=== PATIENT | female | born 2000 | race Caucasian/White ===

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

== ENCOUNTER → 2021-02-08 10:43 | Outpatient (CLI) | payer BC, SELFPAY ==
--- NOTE | 2021-02-08 10:55 | US_ITS ---
STUDY: ULTRASOUND BREAST - RIGHT REASON FOR EXAM: Female, 20 years old. Two-week history of a palpable right breast lump. TECHNIQUE: Axial and longitudinal images of the RIGHT breast were performed with a high resolution ultrasound transducer. # OF IMAGES: 45 COMPARISON: None. FINDINGS: RIGHT Breast: The palpable abnormality corresponds to a 1.1 cm x 1.4 cm x 0.8 cm hypoechoic nodular density with the mildly undulating borders. This is superficial. This is at the 4 o''clock position in the breast at 2 cm from the nipple. This most likely represents a fibroadenoma. Tissue diagnosis is recommended. US/Breast Limited Unilateral IMPRESSION: The palpable abnormality corresponds to a 1.1 cm x 1.4 cm x 0.7 hypoechoic nodular density with slightly undulating borders. This most likely represents a fibroadenoma although a tissue diagnosis recommended. ASSESSMENT CATEGORY: BIRADS Category 4: Suspicious - Biopsy Should Be Considered. A letter regarding these results will be sent to the patient by the facility within 30 days. Electronically Signed: Sudhir Rivas MD at 13:04 EDT , Service support ,
== END ==
PROVIDERS: Referring Provider Physician Assistant; Visit Provider Physician Assistant
DX: N63.10 Unspecified lump in the right breast, unspecified quadrant (principal)
CPT/HCPCS: 76642

== ENCOUNTER → 2021-03-21 | Outpatient (CLI) | payer BC, SELFPAY ==
--- NOTE | 2021-03-21 13:10 | BRBX_PTH ---
PATIENT: JESSICA ARANA LOC: [facility] U#:[id number] AGE/SX: 20/F ROOM: RE03/21/[address]: Dr. Hermelinda Sebastian MD : 2000 BED: DIS: 03/21/2021 SPEC #: [id number] RECD: 03/21/21 15:03 STATUS: ABDULLAHI REDarshan #: [id number] MALINA: 03/21/21 13:[address]: Hermelinda Sebastian DEPT: SURGICAL PATHOLOGY RECD BY: Temitope Schmidt ENTERED: 03/22/21 08:30 SP TYPE: BREAST BX OTHR DR: No Primary Care Phys Tissues: Right breast, NOS Procedures: Surgery Specimen Level IV HEADER OPERATION: Right breast biopsy PRE-OP DIAGNOSIS: Right breast mass TISSUE SUBMITTED: Right breast tissue 5 o?clock, 2 cm from nipple MICROSCOPIC DIAGNOSIS Right breast, 5 o?clock, 2 cm from nipple, core biopsy: Fibroadenoma. Negative for atypia or malignancy. See comment. YUAN:alexandria 03/25/2021 COMMENT Correlation with clinical findings and appropriate follow up are necessary. MICROSCOPIC DESCRIPTION Slides are reviewed. GROSS DESCRIPTION Received in fixative is one container labeled with the patient's name and designated right breast. The specimen consists of multiple elongated fragments of gomes-yellow fibroadipose tissue that in aggregate measure 1 x 0.5 x 0.1 cm. The entire specimen is submitted in one cassette. / YUAN:alexandria 03/22/21 TC:1 CPT: 73126
== END | disposition home or self-care (01) ==
LOC: LABSPEC 16:40
PROVIDERS: Visit Provider Surgery
DX: D24.1 Benign neoplasm of right breast (principal)
CPT/HCPCS: 88305

== ENCOUNTER → 2021-06-06 10:26 | Outpatient (CLI) | payer BC, SELFPAY ==
--- NOTE | 2021-06-06 10:28 | US_ITS ---
STUDY: ULTRASOUND OF THE FEMALE PELVIS - COMPLETE REASON FOR EXAM: Female, 21 years old. AUB LMP: 06/01/2021. TECHNIQUE: Transabdominal and Transvaginal TECHNICAL QUALITY: Adequate. COMPARISON: None. FINDINGS: The uterus is anteverted and is in a midline position. The uterus measures 6.7 cm x 4.5 cm x 2.9 cm. Normal uterine cervix. The endometrium measures 3.4 mm in thickness, and is hyperechoic. There is no demonstrated endometrial mass. There is no demonstrated myometrial mass. I.U.D. - The patient does not have an I.U.D. The right ovary is visualized. The right ovary measures 2.9 cm x 2.4 cm x 1.9 cm. There is no right ovarian cyst or ovarian mass. There is no visualized right adnexal mass or complex lesion. There is normal arterial and normal venous vascularity. The left ovary is visualized. The left ovary measures 2.6 cm x 2.1 cm x 2.7 cm. There is no left ovarian cyst or ovarian mass. There is no visualized left adnexal mass or complex lesion. There is normal arterial and normal venous vascularity. There is minimal fluid in the cul-de-sac. The pre void volume of the bladder was 277 ml. US/Transvaginal Non- IMPRESSION: Normal female pelvis. Electronically Signed: Sudhir Rivas MD at 11:15 EST , Service support ,
--- NOTE | 2021-06-06 10:28 | US_ITS ---
STUDY: ULTRASOUND OF THE FEMALE PELVIS - COMPLETE REASON FOR EXAM: Female, 21 years old. AUB LMP: 06/01/2021. TECHNIQUE: Transabdominal and Transvaginal TECHNICAL QUALITY: Adequate. COMPARISON: None. FINDINGS: The uterus is anteverted and is in a midline position. The uterus measures 6.7 cm x 4.5 cm x 2.9 cm. Normal uterine cervix. The endometrium measures 3.4 mm in thickness, and is hyperechoic. There is no demonstrated endometrial mass. There is no demonstrated myometrial mass. I.U.D. - The patient does not have an I.U.D. The right ovary is visualized. The right ovary measures 2.9 cm x 2.4 cm x 1.9 cm. There is no right ovarian cyst or ovarian mass. There is no visualized right adnexal mass or complex lesion. There is normal arterial and normal venous vascularity. The left ovary is visualized. The left ovary measures 2.6 cm x 2.1 cm x 2.7 cm. There is no left ovarian cyst or ovarian mass. There is no visualized left adnexal mass or complex lesion. There is normal arterial and normal venous vascularity. There is minimal fluid in the cul-de-sac. The pre void volume of the bladder was 277 ml. US/Pelvic (Non ) IMPRESSION: Normal female pelvis. Electronically Signed: Sudhir Rivas MD at 11:15 EST , Service support ,
== END ==
PROVIDERS: Referring Provider Obstetrics & Gynecology; Visit Provider Obstetrics & Gynecology
DX: N92.0 Excessive and frequent menstruation with regular cycle (principal)
CPT/HCPCS: 76830; 76856

== ENCOUNTER → 2022-03-31 | Outpatient (CLI) | payer BC, SELFPAY ==
[2022-03-31 09:53] LABS: HIV - WCH Non-Reactive (Nonreactive); Hepatitis C Antibody Non-Reactive (Nonreactive); Syphilis Antibodies Non-reactive
[2022-04-01 16:19] LABS: HSV 2 IgG < 0.91 index (0.00-0.90)
[2022-04-01 21:07] LABS: Chlamydia By Nucleic Acid AMP Negative (Negative)
[2022-04-02 09:05] LABS: Gonococcus By Nucleic Acid AMP Negative (Negative)
== END | disposition home or self-care (01) ==
PROVIDERS: Referring Provider Nurse Practitioner Women's Health; Visit Provider Nurse Practitioner Women's Health
DX: Z20.2 Contact with and (suspected) exposure to infections with a predominantly sexual mode of transmission (principal)
CPT/HCPCS: 36415; 86695; 86696; 86703; 86780; 86803; 87491; 87591

== ENCOUNTER 2022-05-14 16:55 | Outpatient (CLI) | payer BC, SELFPAY ==
[2022-05-20 05:06] LABS: Chlamydia By Nucleic Acid AMP Negative (Negative)
[2022-05-20 10:59] LABS: Gonococcus By Nucleic Acid AMP Negative (Negative)
[2022-05-23 13:33] LABS: HPV APTIMA, High Risk Negative (Negative)
[2022-05-24 16:17] LABS: HPV Reflexed? YES, CHARGE PATIENT
== END 2022-05-14 23:59 | disposition home or self-care (01) ==
LOC: LABSPEC 16:56
PROVIDERS: Visit Provider Nurse Practitioner Women's Health
DX: Z12.4 Encounter for screening for malignant neoplasm of cervix (principal); Z11.3 Encounter for screening for infections with a predominantly sexual mode of transmission; N89.8 Other specified noninflammatory disorders of vagina
CPT/HCPCS: 87070; 87205; 87491; 87591; 87624; 88175; G0145

== ENCOUNTER → 2022-12-11 | Outpatient (CLI) | payer BC, SELFPAY | END | disposition home or self-care (01) | LOC: LABSPEC 13:43 | PROVIDERS: Referring Provider Obstetrics & Gynecology; Visit Provider Obstetrics & Gynecology | DX: Z11.3 Encounter for screening for infections with a predominantly sexual mode of transmission (principal) ==

== ENCOUNTER → 2022-12-26 | Outpatient (CLI) | payer BC, SELFPAY ==
[2022-12-30 09:09] LABS: HSV 1 By PCR Negative (Negative); HSV 2 By PCR Negative (Negative); HSV 2 IgG 2.34 index (0.00-0.90)
== END | disposition home or self-care (01) ==
LOC: LAB 16:17
PROVIDERS: PCP Nurse Practitioner Family; Referring Provider Obstetrics & Gynecology; Visit Provider Obstetrics & Gynecology
DX: N90.89 Other specified noninflammatory disorders of vulva and perineum (principal); Z11.3 Encounter for screening for infections with a predominantly sexual mode of transmission
CPT/HCPCS: 36415; 86695; 86696; 87491; 87529; 87591

== ENCOUNTER → 2024-07-28 | Outpatient (CLI) | payer BC, SELFPAY ==
--- NOTE | 2024-07-28 14:24 | US_ITS ---
PROCEDURE: BREAST LIMITED UNILATERAL REASON FOR EXAM: Bilateral breast lumps. COMPARISON: Comparison is made with prior sonogram dated February 08, 2021. TECHNIQUE: Targeted bilateral breast ultrasound. FINDINGS: RIGHT: Ultrasound targeted to the inferior medial aspect at the right breast. There is a 1.5 cm x 1.8 cm x 0.9 cm well-defined hypoechoic nodule at the 4 o'clock position of the breast at 2 cm from the nipple. This is essentially unchanged. Apparently, the patient has had a prior biopsy of this nodule. US/Breast Limited Unilateral IMPRESSION: 1.5 cm x 1.8 cm x 0.9 cm well-defined hypoechoic nodule at the 4 o'clock positi on of the breast at 2 cm from nipple. This is essentially unchanged. The patient has a history of prior biopsy of this nodul e. BI-RADS 2: BENIGN. RECOMMEND ANNUAL MAMMOGRAPHIC SCREENING. Reading Location: [id number]
--- NOTE | 2024-07-28 14:24 | US_ITS ---
PROCEDURE: BREAST LIMITED UNILATERAL REASON FOR EXAM: Bilateral breast lumps. TECHNIQUE: Targeted left breast ultrasound. COMPARISON: Comparison is made with prior study dated February 08, 2021. FINDINGS: LEFT: Left breast ultrasound was targeted to the lower outer quadrant.. The breast tissue appears sonographically normal. No cyst, solid mass, or suspicious shadowing. US/Breast Limited Unilateral IMPRESSION: BI-RADS 1: NEGATIVE. RECOMMEND ANNUAL MAMMOGRAPHIC SCREENING. Follow-up code: Routine Follow-up Reading Location: [id number]
== END | disposition home or self-care (01) ==
PROVIDERS: PCP Nurse Practitioner Family; Referring Provider Advanced Practice Midwife; Visit Provider Advanced Practice Midwife
DX: N64.4 Mastodynia (principal); N63.10 Unspecified lump in the right breast, unspecified quadrant
CPT/HCPCS: 76642